=== PATIENT | male | born 1965 | race African-American/Black ===

== ENCOUNTER 2023-10-05 10:43 | Emergency (ER) | payer MEDICAID ==
[~2023-10-05] VITALS: Ht 177.8 cm; Wt 67.0 kg
[2023-10-05 10:46] VITALS: BP 137/99; PULSE 95; RESP 16; TEMP 98.5; O2SAT 99
[2023-10-05] MEDS ORDERED: BACITRACIN ZINC OINT UDPKT TOP ONE (11:15)
[2023-10-05] MEDS ORDERED: LIDOCAINE HCL/PF 1% 10 MG/ML 5ML VIAL INFIL ONE (11:15)
[2023-10-05] MEDS ORDERED: TETANUS, DIPHTHERIA, PERTUSSIS VAC/PF 0.5ML (>10YR OLD) IM ONE (11:15)
[2023-10-05] MEDS ORDERED: BO1 TP (11:16)
== END 2023-10-05 12:21 | disposition home or self-care (01) ==
LOC: ER 10:43
DX: S61.411A Laceration without foreign body of right hand, initial encounter (principal); Y04.0XXA Assault by unarmed brawl or fight, initial encounter; Y93.89 Activity, other specified; Y92.89 Other specified places as the place of occurrence of the external cause; Y99.8 Other external cause status
CPT/HCPCS: 73130; 90715; 12001; 90471; 99283; J3490; Z7610 ×2

== ENCOUNTER 2023-10-10 07:06 | Emergency (ER) | payer MEDICAID ==
[~2023-10-10] VITALS: Ht 182.9 cm; Wt 129.0 kg
[~2023-10-10 07:06] MED LIST: BO1 TP
[2023-10-10 07:36] VITALS: BP 163/107; RESP 16; TEMP 98.2; O2SAT 99
[2023-10-10 07:42] VITALS: PULSE 71
== END 2023-10-10 09:03 | disposition home or self-care (01) ==
LOC: ER 07:06
DX: S61.412D Laceration without foreign body of left hand, subsequent encounter (principal); Z98.890 Other specified postprocedural states; Z48.00 Encounter for change or removal of nonsurgical wound dressing; X58.XXXD Exposure to other specified factors, subsequent encounter
CPT/HCPCS: 99281; Z7610

== ENCOUNTER 2023-10-16 06:44 | Emergency (ER) | payer MEDICAID ==
[~2023-10-16] VITALS: Ht 182.9 cm; Wt 127.0 kg
[2023-10-16 06:50] VITALS: BP 165/98; PULSE 110; RESP 18; TEMP 98; O2SAT 98
== END 2023-10-16 09:11 | disposition home or self-care (01) ==
LOC: ER 06:44
DX: S61.011D Laceration without foreign body of right thumb without damage to nail, subsequent encounter (principal); X58.XXXD Exposure to other specified factors, subsequent encounter
CPT/HCPCS: 99281; Z7610 ×2